=== PATIENT | female | born 1975 | race Caucasian/White ===

== ENCOUNTER → 2020-06-10 | Outpatient (CLI) | payer OTHER ==
--- NOTE | 2020-06-10 15:40 | KCIC ---
EXAMINATION: TRANSABDOMINAL PELVIC ULTRASOUND HISTORY: Reason: Pelvic pain; Uterine Fibroids seen on CT done at outside imaging per pt / Spl. Instructions: / History: TECHNIQUE: Sonography of the pelvis was performed by transabdominal technique. COMPARISON: None FINDINGS: Uterus: 10.7 x 6.5 x 5.6 cm - Orientation: Anteverted - Myometrium: Several leiomyomas present measuring up to 4.6 cm in greatest dimension. - Endometrial echo complex: Nonvisualized secondary to multiple fibroids. - Cervix: Unremarkable on limited evaluation. Right ovary: 2.3 x 2.4 x 1.2 cm - Normal sonographic appearance. Left ovary: 2.2 x 1.7 x 1.9 cm - Normal sonographic appearance. Pelvic free fluid: Trace free fluid is likely physiologic. IMPRESSION: Leiomyomatous uterus. Electronically signed by: Chris Gomez DO (06/10/2020 3:37 PM) [id number]
== END | disposition home or self-care (01) ==
LOC: KCIC US 14:16
PROVIDERS: ATTEND Obstetrics & Gynecology
DX: D25.9 Leiomyoma of uterus, unspecified (principal); R10.2 Pelvic and perineal pain
CPT/HCPCS: 76856

== ENCOUNTER → 2021-08-25 | Outpatient (CLI) | payer OTHER ==
--- NOTE | 2021-08-25 17:10 | KCIC ---
Examination: MRI of the right hip was performed without contrast HISTORY: Right hip pain COMPARISON: None TECHNIQUE: Multiplanar multisequence MR imaging of the right hip was performed without contrast FINDINGS: The attachment of the hamstring tendon to the ischial tuberosity, attachment of the gluteal tendons t o the greater trochanter, attachment of the iliopsoas tendon to the lesser trochanter and the attachm ent of the rectus femoris tendon to the anterior inferior iliac spine grossly appears intact. Mild in creased T2 signal identified about the gluteal tendon attachment likely mild tendinosis. Mild joint space loss identified likely degenerative changes. The visualized labrum grossly appears u nremarkable. No evidence of avascular necrosis identified. IMPRESSION: 1. Mild tendinosis gluteal tendon. 2. Mild degenerative changes right hip joint. Electronically signed by: Avtar Piña MD (08/25/2021 5:08 PM) [id number]
== END ==
LOC: KCIC MRI 15:15
PROVIDERS: ATTEND Internal Medicine
DX: M16.11 Unilateral primary osteoarthritis, right hip (principal); M25.851 Other specified joint disorders, right hip
CPT/HCPCS: 73721